=== PATIENT | female | born 1995 | race Caucasian/White ===

== ENCOUNTER 2024-11-07 13:53 | Emergency (ER) | payer SELFPAY | END 2024-11-07 15:10 | disposition home or self-care (01) | LOC: JP.ED 13:53 | DX: N61.0 Mastitis without abscess (principal); E03.9 Hypothyroidism, unspecified; Z79.899 Other long term (current) drug therapy; Z79.890 Hormone replacement therapy; Z90.49 Acquired absence of other specified parts of digestive tract | CPT/HCPCS: 99283 ==